=== PATIENT | female | born 1995 | race Caucasian/White ===

== ENCOUNTER 2018-02-02 07:55 | Emergency (ER) | payer SELFPAY ==
[2018-02-02] MEDS: IBUPROFEN 400 MG TABLET. PO (08:25)
== END 2018-02-02 08:25 | disposition home or self-care (01) ==
LOC: ER 07:55
DX: R68.84 Jaw pain (principal); Z88.0 Allergy status to penicillin; Z88.1 Allergy status to other antibiotic agents
CPT/HCPCS: 99282

== ENCOUNTER 2018-04-01 00:52 | Emergency (ER) | payer SELFPAY | END 2018-04-01 01:28 | disposition home or self-care (01) | LOC: ER 00:52 | DX: H60.91 Unspecified otitis externa, right ear (principal); Z96.22 Myringotomy tube(s) status; Z88.0 Allergy status to penicillin; Z88.1 Allergy status to other antibiotic agents | CPT/HCPCS: 99283 ==

== ENCOUNTER 2018-04-19 00:09 | Emergency (ER) | payer SELFPAY | END 2018-04-19 01:20 | disposition home or self-care (01) | LOC: ER 00:09 | DX: H60.93 Unspecified otitis externa, bilateral (principal); H66.93 Otitis media, unspecified, bilateral; Z96.22 Myringotomy tube(s) status; Z88.0 Allergy status to penicillin; Z88.1 Allergy status to other antibiotic agents | CPT/HCPCS: 99283 ==